=== PATIENT | female | born 1950 | race Caucasian/White ===

== ENCOUNTER 2017-02-18 10:23 | Emergency (ER) | payer BC, OTHER ==
[~2017-02-18] VITALS: Ht 160 cm; Wt 81.6 kg
[~2017-02-18 10:23] MED LIST: DULO60CA45 PO; FLUT16SP NS; GABA-534 PO; HYDR-548 PO; OMEP40CA37 PO; POTA20TA83 PO; QUET200T PO; RIZA10TA27 PO; TOPI-37 PO; TRAM50TA2 PO
--- NOTE | 2017-02-18 10:25 | NUR ---
AAOX3, CAME TO ER C/O left shoulder pain possible dislocation per patient, hx of left shoulder DISLOCATION. NO OBVIOUS DEFORMITY NOTED. SKIN IS WARM AND DRY. PATIENT IS ABLE TO MOVE THE LEFT ARM. AWAITING MD FOR EVAL.
--- NOTE | 2017-02-18 11:40 | NUR ---
Patient discharged to home in stable condition. Written and verbal after care instructions given. Patient verbalizes understanding of instruction. Ambulates out of ER with stable gait.
[2017-02-18 11:57] VITALS: BP 160/82
== END 2017-02-18 11:57 | disposition home or self-care (01) ==
LOC: ER 10:24
DX: S43.005A Unspecified dislocation of left shoulder joint, initial encounter (principal); Z96.612 Presence of left artificial shoulder joint; Z88.0 Allergy status to penicillin; X50.0XXA Overexertion from strenuous movement or load, initial encounter; Y93.89 Activity, other specified; Y92.89 Other specified places as the place of occurrence of the external cause; Y99.8 Other external cause status
CPT/HCPCS: 73030; 99284; A4606; Z7610

== ENCOUNTER 2017-04-17 09:22 | Emergency (ER) | payer BC, OTHER ==
[~2017-04-17] VITALS: Ht 172.7 cm; Wt 81.6 kg
--- NOTE | 2017-04-17 09:48 | NUR ---
PATIENT ARRIVED TO ER C/O FEELING LIGHTHEADED, STATING "SOMETHING NOT RIGHT WITH MY HEAD." PATIENT'S VITALS STABLE, A/OX 4. PATIENT PROVIDED WITH SAFETY AND COMFORT MEASURES. AWAITING MD ORDERS.
[2017-04-17] MEDS ORDERED: IV SET PRIMARY 1 EA INFUS.SET MC ONE (10:07)
[2017-04-17] MEDS ORDERED: IV NS 0.9% 1,000 ML ONE (10:07)
--- NOTE | 2017-04-17 10:24 | NUR ---
NEW IV STARTED LAC, 20 GAUGE, BLOOD DRAWN, LAB PICKED UP. 1L NS BOLUS STARTED.
[2017-04-17 10:25] LABS: BASOPHILS # (AUTO) 0.1 /CMM (0.0-0.2); BASOPHILS % (AUTO) 0.8 % (0.0-2.0); EOSINOPHILS # (AUTO) 0.1 /CMM (0.0-0.7); EOSINOPHILS % (AUTO) 0.5 % (0.0-6.0); HEMATOCRIT 41 % (33-45); HEMOGLOBIN 13.7 g/dL (11.5-14.8); LYMPHOCYTES # (AUTO) 0.7 /CMM (0.8-4.8); LYMPHOCYTES % (AUTO) 6.3 % (20.0-44.0); MEAN CORPUSCULAR HEMOGLOBIN 29 PG (26.0-33.0); MEAN CORPUSCULAR HGB CONC 33 g/dl (31.0-36.0); MEAN CORPUSCULAR VOLUME 87 fL (82-100); MONOCYTES # (AUTO) 0.3 /CMM (0.1-1.30); NEUTROPHILS % (AUTO) 89.4 % (43.0-81.0); PLATELET COUNT (AUTO) 310 /CMM (150-450); RDW COEFFICIENT OF VARIATION 13.8 (11.5-15.0); RED BLOOD CELL COUNT(AUTO) 4.71 MIL/uL (4.0-5.2); WHITE BLOOD COUNT (AUTO) 11.2 K/uL (4.3-11.0)
[2017-04-17] MEDS ORDERED: IV NS 0.9% 1,000 ML BAG IV ONE (10:30)
--- NOTE | 2017-04-17 10:33 | NUR ---
BS 65, OJ GIVEN
[2017-04-17 10:35] LABS: CALCIUM, SERUM 8.7 mg/dL (8.5-10.1); CARBON DIOXIDE 33 mmol/L (21-32); CHLORIDE 106 mmol/L (98-107); CREATININE 0.9 mg/dL (0.6-1.3); GLUCOSE 84 mg/dL (74-106); POTASSIUM 4.2 mmol/L (3.5-5.1); SODIUM SERUM 142 mmol/L (136-145)
[2017-04-17 10:46] LABS: TROPONIN I < 0.017 ng/mL (0.00-0.056)
[2017-04-17 10:51] LABS: UREA NITROGEN, BLOOD 17 mg/dL (7-18)
--- NOTE | 2017-04-17 11:24 | NUR ---
BLOOD DRAWN FOR VBG'S
[2017-04-17 11:31] LABS: ABG BASE EXCESS 1.2 mmol/L; ABG OXYGEN SATURATION 67.9 % (92.0-98.5); ABG PCO2 52.7 mmHg (35.0-45.0); ABG PH 7.341 (7.350-7.450); ABG PO2 37.5 mmHg (75.0-100.0); COHb 1.3 % (0.5-1.5); MetHb 0.4 % (0.0-1.5); O2Hb 66.7 % (94.0-97.0); SITE, ABG LEFT ARM; VENT MODE, BG ROOM AIR/ VENOUS BLOOD GA
--- NOTE | 2017-04-17 12:14 | NUR ---
PATIENT REMAINS STABLE, CLEARED FOR DISCHARGE PER MD. EXCUSE FROM WORK GIVEN TO PATIENT. PROVIDED DISCHARGE EDUCATION TO F/U WITH PRIMARY MD. PATIENT VERBALIZED UNDERSTANDING. IV REMOVED, ID BAND REMOVED. PATIENT LEAVING VIA PRIVATE CAR.
[2017-04-17 12:25] VITALS: BP 148/73
--- NOTE | 2017-04-17 12:26 | NUR ---
Patient discharged to home in stable condition. Written and verbal after care instructions given. Patient verbalizes understanding of instruction. IV removed. Catheter intact and site benign. Pressure and 4x4 applied to site. No bleeding noted. NAD NOTED UPON DISCHARGE
== END 2017-04-17 12:25 | disposition home or self-care (01) ==
LOC: ER 09:24
DX: E16.2 Hypoglycemia, unspecified (principal); R53.1 Weakness; M79.7 Fibromyalgia; Z88.0 Allergy status to penicillin; Z96.612 Presence of left artificial shoulder joint
CPT/HCPCS: 36415; 36600; 71010-TC; 80048-TC; 82962-TC; 84484-TC; 85025-TC; A4606; J7030; Z7610

== ENCOUNTER 2017-04-20 07:20 | Outpatient (CLI) | payer BC, OTHER ==
[2017-04-20 08:38] LABS: BASOPHILS # (AUTO) 0.1 /CMM (0.0-0.2); BASOPHILS % (AUTO) 0.5 % (0.0-2.0); EOSINOPHILS # (AUTO) 0.2 /CMM (0.0-0.7); EOSINOPHILS % (AUTO) 1.5 % (0.0-6.0); HEMATOCRIT 40 % (33-45); HEMOGLOBIN 13.2 g/dL (11.5-14.8); LYMPHOCYTES # (AUTO) 0.9 /CMM (0.8-4.8); LYMPHOCYTES % (AUTO) 8.4 % (20.0-44.0); MEAN CORPUSCULAR HEMOGLOBIN 29 PG (26.0-33.0); MEAN CORPUSCULAR HGB CONC 33 g/dl (31.0-36.0); MEAN CORPUSCULAR VOLUME 88 fL (82-100); MONOCYTES # (AUTO) 0.4 /CMM (0.1-1.30); MONOCYTES % (AUTO) 4.1 % (2.0-12.0); NEUTROPHILS # (AUTO) 9.2 /CMM (1.8-8.9); NEUTROPHILS % (AUTO) 85.5 % (43.0-81.0); PLATELET COUNT (AUTO) 304 /CMM (150-450); RDW COEFFICIENT OF VARIATION 15.2 (11.5-15.0); RED BLOOD CELL COUNT(AUTO) 4.52 MIL/uL (4.0-5.2); WHITE BLOOD COUNT (AUTO) 10.8 K/uL (4.3-11.0)
[2017-04-20 08:54] LABS: ALANINE AMINOTRANSFERASE 24 U/L (12-78); ALBUMIN 3.6 g/dL (3.4-5.0); ALKALINE PHOSPHATASE 78 U/L (46-116); ASPARTATE AMINOTRANSFERASE 31 U/L (15-37); BILIRUBIN,TOTAL 0.6 mg/dL (0.2-1.0); CALCIUM, SERUM 8.4 mg/dL (8.5-10.1); CARBON DIOXIDE 33 mmol/L (21-32); CHLORIDE 102 mmol/L (98-107); CREATININE 0.9 mg/dL (0.6-1.3); GLUCOSE 83 mg/dL (74-106); POTASSIUM 4.1 mmol/L (3.5-5.1); SODIUM SERUM 140 mmol/L (136-145); TOTAL PROTEIN, SERUM 6.7 g/dL (6.4-8.2); UREA NITROGEN, BLOOD 16 mg/dL (7-18)
[2017-04-20 08:57] LABS: IRON, SERUM 106 ug/dl (50-175); TOTAL IRON BINDING CAPACITY 359 ug/dl (250-450)
[2017-04-20 09:05] LABS: CHOLESTEROL 173 mg/dL (<200); FERRITIN 48 ng/mL (8-388); FREE T4 (FREE THYROXINE) 1.06 ng/dL (0.76-1.46); HDL CHOLESTEROL 70 mg/dL (40-60); LDL 82 mg/dL (0-99); THYROID STIMULATING HORMONE 1.989 uIU/mL (0.358-3.74); TRIGLYCERIDES 65 mg/dL (30-150)
[2017-04-20 09:37] LABS: APPEARANCE,URINE CLEAR (CLEAR); BILIRUBIN,URINE NEGATIVE (NEGATIVE); BLOOD, URINE NEGATIVE Ery/uL (NEGATIVE); COLOR,URINE YELLOW (YELLOW); KETONES,URINE NEGATIVE (NEGATIVE); LEUKOCYTE ESTERASE ,URINE NEGATIVE (NEGATIVE); NITRITE, URINE NEGATIVE (NEGATIVE); PH,URINE 6.5 (5.0-8.0); PROTEIN,URINE NEGATIVE (NEGATIVE); UGLUCOSE NEGATIVE (NEGATIVE); UROBILINOGEN,URINE 0.2 EU/dL (0.2)
[2017-04-20 09:40] LABS: C-REACTIVE PROTEIN < 0.2 mg/dL (0.0-0.9)
[2017-04-22 05:13] LABS: FOLLICLE STIMULATION HORMONE 43.8 mIU/mL (.); LUTEINIZING HORMONE 9.9 mIU/mL (.)
== END 2017-04-20 23:59 | disposition home or self-care (01) ==
LOC: LAB 07:20
PROVIDERS: ATTEND Legal Medicine
DX: Z00.01 Encounter for general adult medical examination with abnormal findings (principal); E11.9 Type 2 diabetes mellitus without complications; I10 Essential (primary) hypertension; D64.9 Anemia, unspecified; E03.9 Hypothyroidism, unspecified; E55.9 Vitamin D deficiency, unspecified
CPT/HCPCS: 36415; 80053-TC; 80061-TC; 81000-TC; 82306; 82728-TC; 82746; 83001; 83002; 83540-TC; 84439-TC; 84443-TC; 85025-TC; 85652-TC; 86140-TC

== ENCOUNTER 2017-04-21 09:07 | Outpatient (CLI) | payer BC, OTHER ==
[2017-04-21] MEDS ORDERED: IV NS 0.9% 250 ML IV ONE (09:47)
[2017-04-21] MEDS ORDERED: CT SWABBABLE VALVE TRANS SET 1 EA INFUS.SET MC ONE (09:48)
[2017-04-21] MEDS ORDERED: IOHEXOL-350 100 ML VIAL IV ONE (09:48)
== END 2017-04-21 23:59 | disposition home or self-care (01) ==
LOC: CT 09:07
PROVIDERS: ATTEND Legal Medicine
DX: J98.11 Atelectasis (principal); I70.0 Atherosclerosis of aorta; M47.892 Other spondylosis, cervical region; M47.896 Other spondylosis, lumbar region; M47.894 Other spondylosis, thoracic region; M19.011 Primary osteoarthritis, right shoulder; Z95.1 Presence of aortocoronary bypass graft; Z90.49 Acquired absence of other specified parts of digestive tract
CPT/HCPCS: 71275; J7050; Q9967

== ENCOUNTER 2017-09-25 07:16 | Day surgery (SDC) | payer BC, OTHER ==
[2017-09-25] MEDS ORDERED: IOHEXOL 50 ML IV ONE (08:56)
[2017-09-25] MEDS ORDERED: methylPREDNISolone ACETATE 40 MG/ML VIAL ONE (08:56)
[2017-09-25] MEDS ORDERED: BUPIVACAINE 0.5 % PF 150 MG/30 ML VIAL ONE (08:56)
== END 2017-09-25 09:32 | disposition home or self-care (01) ==
LOC: DS 07:16
PROVIDERS: ATTEND Anesthesiology
DX: M51.16 Intervertebral disc disorders with radiculopathy, lumbar region (principal); M47.26 Other spondylosis with radiculopathy, lumbar region; Z96.653 Presence of artificial knee joint, bilateral; Z98.84 Bariatric surgery status; Z96.612 Presence of left artificial shoulder joint
CPT/HCPCS: 72020-TC; A6209; J1030; J3490; Q9967; Z7610

== ENCOUNTER 2017-10-07 07:54 | Day surgery (SDC) | payer BC ==
[2017-10-07] MEDS ORDERED: BUPIVACAINE 0.25% 75 MG/30 ML VIAL ONE (08:45)
[2017-10-07] MEDS ORDERED: IOHEXOL 50 ML IV ONE (08:45)
[2017-10-07] MEDS ORDERED: DEXAMETHASONE SOD PHOSPHATE 4 MG/ML VIAL ONE (08:46)
[2017-10-07] MEDS ORDERED: DEXAMETHASONE SOD PHOSPHATE 10 MG/ML VIAL ONE (08:47)
== END 2017-10-07 10:00 | disposition home or self-care (01) ==
LOC: DS 07:54
PROVIDERS: ATTEND Anesthesiology
DX: M51.16 Intervertebral disc disorders with radiculopathy, lumbar region (principal); Z88.0 Allergy status to penicillin
CPT/HCPCS: 72020-TC; A6209; J1100; J3490; Q9967; Z7610

== ENCOUNTER 2017-11-11 07:50 | Emergency (ER) | payer MEDICARE, BC ==
[~2017-11-11] VITALS: Ht 160 cm; Wt 81.6 kg
[~2017-11-11 07:50] MED LIST changes: -TOPI-37 PO; +TOPI100T38 PO
[2017-11-11 08:15] VITALS: BP 148/84
[2017-11-11] MEDS ORDERED: IBUPROFEN 600 MG TABLET PO ONE ×2 (08:30→08:46)
== END 2017-11-11 09:44 | disposition home or self-care (01) ==
LOC: ER 07:52
DX: J11.1 Influenza due to unidentified influenza virus with other respiratory manifestations (principal); F10.10 Alcohol abuse, uncomplicated; M79.7 Fibromyalgia; Z88.0 Allergy status to penicillin; Z96.612 Presence of left artificial shoulder joint
CPT/HCPCS: 71045; 99283; A4606; Z7610

== ENCOUNTER 2017-11-27 07:57 | Emergency (ER) | payer OTHER, BC ==
[~2017-11-27] VITALS: Ht 160 cm; Wt 81.6 kg
--- NOTE | 2017-11-27 08:07 | NUR ---
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 PT. STATES SHE FELL ON LEFT SIDE OF HEAD AND FACE. DENIES LOC OR ANY OTHER TRAUMA. PATIENT A/OX 4. BREATHING EVEN AND UNLABORED. NO SOB. VITALS STABLE. SAFETY AND COMFORT MEASURES IN PLACE. AWAITING MD ORDERS.
--- NOTE | 2017-11-27 08:32 | NUR ---
PATIENT TAKEN TO CT VIA WHEELCHAIR.
--- NOTE | 2017-11-27 08:45 | NUR ---
PATIENT RETURNED FROM CT IN STABLE CONDITION.
--- NOTE | 2017-11-27 09:15 | NUR ---
Patient discharged to home in stable condition. Written and verbal after care instructions given. Patient verbalizes understanding of instruction.
[2017-11-27 09:17] VITALS: BP 146/88
== END 2017-11-27 09:18 | disposition home or self-care (01) ==
LOC: ER 07:59
DX: S09.8XXA Other specified injuries of head, initial encounter (principal); M79.7 Fibromyalgia; F10.10 Alcohol abuse, uncomplicated; Z88.0 Allergy status to penicillin; Z96.612 Presence of left artificial shoulder joint; W01.198A Fall on same level from slipping, tripping and stumbling with subsequent striking against other object, initial encounter; Y93.89 Activity, other specified; Y92.89 Other specified places as the place of occurrence of the external cause; Y99.0 Civilian activity done for income or pay
CPT/HCPCS: 70450; 99284; A4606; Z7610

== ENCOUNTER 2018-01-13 09:25 | Day surgery (SDC) | payer BC ==
[2018-01-13 10:00] VITALS: BP 140/70
[2018-01-13] MEDS ORDERED: FENTANYL PF 100MCG/2ML AMPUL ONE (10:02)
[2018-01-13] MEDS ORDERED: MIDAZOLAM HCL 2 MG/2ML VIAL ONE (10:02)
[2018-01-13] MEDS ORDERED: methylPREDNISolone ACETATE 80 MG/ML VIAL ONE (10:30)
--- NOTE | 2018-01-13 10:32 | NUR ---
MED SURG NOTE PT WALKED IN WORKS HERE. A/AO X4. PAIN 10. V/S TAKEN IV LFA 20g INTACT. INTIATING CONSENTS AND FORMS FOR PROCEDURE. ALL SAFETY MEASURES IN PLACE. WILL CONTINUE TO MONITOR PATIENT CLOSELY.
--- NOTE | 2018-01-13 11:18 | NUR ---
MED SURG NOTE PT TRANSPORTED VIA GURNEY TO OR. PT A/O X4.
[2018-01-13 13:00] VITALS: BP 125/64
--- NOTE | 2018-01-13 13:12 | NUR ---
MED SURG NOTE PT RETURNED FROM DAY SURGERY. PT STABLE. RESTING COMFORTABLY IN BED. V/S TAKEN WILL CONTINUE TO MONITOR CLOSELY. ALL SAFETY MEASURES IN PLACE.
[2018-01-13] MEDS ORDERED: BUPIVACAINE 0.25% 75 MG/30 ML VIAL IJ ONE (14:23)
[2018-01-13] MEDS ORDERED: IOHEXOL 240 MG/ML IV ONE (14:23)
--- NOTE | 2018-01-13 14:23 | NUR ---
DISCHARGE NOTE PT DISCHARGED HOME. PT STABLE V/S WNL. NO C/O PAIN. DISCHARGE ORDERS SIGNED ID BAND AND IV REMOVED. ALL ORDERS CARRIED OUT. PT LEFT VIA PRIVATE CAR. ALLL BELONGINGS WITH PATIENT.
== END 2018-01-13 14:24 | disposition home or self-care (01) ==
LOC: DS 09:25 → MEDSG1 09:29 → UNDOADMIN 09:29 → DS 14:24 → UNDODISIN 14:24
PROVIDERS: ATTEND Anesthesiology
DX: M53.3 Sacrococcygeal disorders, not elsewhere classified (principal); M47.817 Spondylosis without myelopathy or radiculopathy, lumbosacral region; G43.909 Migraine, unspecified, not intractable, without status migrainosus; G44.89 Other headache syndrome; Z88.0 Allergy status to penicillin
CPT/HCPCS: 27096; 72170; J1040; J2250; J3490; Q9966; Z7610 ×2; J3010

== ENCOUNTER → 2018-02-02 | Outpatient (CLI) | payer BC, MEDICARE | LOC: MSC 09:00 | PROVIDERS: ATTEND Anesthesiology | DX: M46.96 Unspecified inflammatory spondylopathy, lumbar region (principal); M47.817 Spondylosis without myelopathy or radiculopathy, lumbosacral region; M54.5 Low back pain; M79.7 Fibromyalgia; G43.909 Migraine, unspecified, not intractable, without status migrainosus; G44.89 Other headache syndrome; M25.9 Joint disorder, unspecified; Z96.653 Presence of artificial knee joint, bilateral; Z96.612 Presence of left artificial shoulder joint; Z79.891 Long term (current) use of opiate analgesic ==

== ENCOUNTER 2018-02-23 09:00 | Outpatient (CLI) | payer BC, MEDICARE | END 2018-02-23 23:59 | disposition home or self-care (01) | LOC: MSC 09:00 | PROVIDERS: ATTEND Anesthesiology | DX: M47.817 Spondylosis without myelopathy or radiculopathy, lumbosacral region (principal); M46.96 Unspecified inflammatory spondylopathy, lumbar region; M79.7 Fibromyalgia; G43.909 Migraine, unspecified, not intractable, without status migrainosus; M25.9 Joint disorder, unspecified; Z96.653 Presence of artificial knee joint, bilateral; Z96.612 Presence of left artificial shoulder joint; Z79.891 Long term (current) use of opiate analgesic; Z79.899 Other long term (current) drug therapy ==

== ENCOUNTER 2018-04-20 08:30 | Outpatient (CLI) | payer BC, MEDICARE | END 2018-04-20 23:59 | disposition home or self-care (01) | LOC: MSC 08:30 | PROVIDERS: ATTEND Anesthesiology | DX: M46.96 Unspecified inflammatory spondylopathy, lumbar region (principal); M47.817 Spondylosis without myelopathy or radiculopathy, lumbosacral region; M79.7 Fibromyalgia; G44.89 Other headache syndrome; G43.909 Migraine, unspecified, not intractable, without status migrainosus; M25.9 Joint disorder, unspecified; Z79.891 Long term (current) use of opiate analgesic; Z79.52 Long term (current) use of systemic steroids; Z79.899 Other long term (current) drug therapy ==

== ENCOUNTER 2018-05-11 07:05 | Day surgery (SDC) | payer BC, MEDICARE ==
[2018-05-11] MEDS ORDERED: IOHEXOL 0 ML IV ONE (08:51)
[2018-05-11] MEDS ORDERED: BETA ACET/BET NA PHOS MDV 6 MG/ML VIAL ONE (08:51)
[2018-05-11] MEDS ORDERED: KETOROLAC TROMETHAMINE INJ 30 MG/ML VIAL ONE (09:40)
== END 2018-05-11 10:40 | disposition home or self-care (01) ==
LOC: DS 07:05
PROVIDERS: ATTEND Anesthesiology
DX: M47.817 Spondylosis without myelopathy or radiculopathy, lumbosacral region (principal); M51.36 Other intervertebral disc degeneration, lumbar region; G43.909 Migraine, unspecified, not intractable, without status migrainosus; M19.90 Unspecified osteoarthritis, unspecified site; F32.9 Major depressive disorder, single episode, unspecified; Z79.891 Long term (current) use of opiate analgesic; Z79.52 Long term (current) use of systemic steroids; Z79.899 Other long term (current) drug therapy
CPT/HCPCS: 72020-TC; A6209; J0702; J1885; Q9967; Z7610

== ENCOUNTER 2018-08-04 08:25 | Outpatient (CLI) | payer BC, MEDICARE ==
[2018-08-04 09:09] LABS: BASOPHILS % (AUTO) 0.3 % (0.0-2.0); EOSINOPHILS % (AUTO) 1.7 % (0.0-6.0); HEMATOCRIT 42 % (33-45); HEMOGLOBIN 13.5 g/dL (11.5-14.8); MEAN CORPUSCULAR HGB CONC 33 g/dl (31.0-36.0); MEAN CORPUSCULAR VOLUME 92 fL (82-100); MONOCYTES # (AUTO) 0.4 /CMM (0.1-1.30); MONOCYTES % (AUTO) 5.7 % (2.0-12.0); NEUTROPHILS # (AUTO) 6.2 /CMM (1.8-8.9); NEUTROPHILS % (AUTO) 79.3 % (43.0-81.0); PLATELET COUNT (AUTO) 275 /CMM (150-450); RDW COEFFICIENT OF VARIATION 14.6 (11.5-15.0); RED BLOOD CELL COUNT(AUTO) 4.54 MIL/uL (4.0-5.2); WHITE BLOOD COUNT (AUTO) 7.9 K/uL (4.3-11.0)
[2018-08-04 09:25] LABS: ALBUMIN 3.4 g/dL (3.4-5.0); BILIRUBIN,TOTAL 0.5 mg/dL (0.2-1.0); CALCIUM, SERUM 8.5 mg/dL (8.5-10.1); CREATININE 0.9 mg/dL (0.6-1.3); POTASSIUM 4.5 mmol/L (3.5-5.1); TOTAL PROTEIN, SERUM 6.6 g/dL (6.4-8.2)
[2018-08-04 09:37] LABS: THYROID STIMULATING HORMONE 1.605 uIU/mL (0.358-3.74)
== END 2018-08-04 23:59 | disposition home or self-care (01) ==
LOC: LAB 08:25 → EDSTATUS 12:57 → LAB 23:59
PROVIDERS: ATTEND Legal Medicine
DX: Z00.01 Encounter for general adult medical examination with abnormal findings (principal); I10 Essential (primary) hypertension; E03.9 Hypothyroidism, unspecified; E55.9 Vitamin D deficiency, unspecified; D64.9 Anemia, unspecified
CPT/HCPCS: 36415; 80053-TC; 80061-TC; 82728-TC; 83540-TC; 84439-TC; 84443-TC; 84550-TC; 85025-TC; 85652-TC